=== PATIENT | male | born 1970 | race Caucasian/White ===

== ENCOUNTER 2018-09-27 12:10 | Outpatient (REF) | payer OTHER, SELFPAY ==
[2018-09-27 19:57] LABS: Abs Immature Grans 0.04 k/cumm (0.0-0.09); Absolute Lymphocyte Count 1.67 k/cumm (1.2-3.4); Absolute Monocyte Count 1.56 k/cumm (0.11-0.7); Absolute Neutrophil Count 12.98 k/cumm (1.2-6.7); Basophils % 0.1; HCT 41.8 % (40.0-50.0); Immature Grans % 0.2; Lymphocytes % 10.3; Mean Corp. HGB Concentration 33.5 g/dL (32.0-36.0); Mean Corpuscular Hemoglobin 31.2 pg (27.0-33.0); Mean Corpuscular Volume 93.1 fL (80-95); Mean Platelet Volume 10.6 fL (8.0-11.0); Monocytes % 9.6; Neutrophils % 79.8; Platelet Count 240 x1000/uL (130-400); RBC 4.49 m/cumm (4.50-6.00); RBC Distribution Width 13.9 % (11.8-14.1); White Blood Cell Count 16.26 k/cumm (4.4-10.8)
[2018-09-27 19:59] LABS: Absolute Basophil Count 0.02 k/cumm (0.0-0.2)
[2018-09-27 20:06] LABS: Anion Gap 15.1 mmol/L (3-11); BUN 12 mg/dL (7-18); CO2 26.9 mmol/L (21.0-32.0); CREATININE 0.96 mg/dL (0.70-1.30); Calcium 9.5 mg/dL (8.5-10.1); Chloride 100 mmol/L (98-107); Glucose 85 mg/dL (70-100); Potassium 4.4 mmol/L (3.5-5.1); Sodium 142 mmol/L (136-145)
[2018-09-27 20:26] LABS: Diff Comment Diff Reviewed; RBC Morphology Normal
== END 2018-09-27 12:30 ==
LOC: NCHCN 12:10
PROVIDERS: Visit Provider Physician Assistant Medical
DX: N41.0 Acute prostatitis (principal); R31.9 Hematuria, unspecified; R34 Anuria and oliguria
CPT/HCPCS: 80048; 85025; 87086

== ENCOUNTER 2018-10-21 15:51 | Outpatient (REF) | payer OTHER, SELFPAY ==
[2018-10-21 20:02] LABS: Ferritin 149 ng/mL (8-388); Magnesium 2.1 mg/dL (1.8-2.4)
== END 2018-10-21 16:11 ==
LOC: NCHCN 15:51
PROVIDERS: Visit Provider Physician Assistant Medical
DX: G25.81 Restless legs syndrome (principal)
CPT/HCPCS: 82728; 83735

== ENCOUNTER 2020-03-19 15:24 | Outpatient (REF) | payer OTHER, SELFPAY ==
[2020-03-21 19:20] LABS: COVID-19 RT-PCR UVMMC Result Negative (Negative)
== END 2020-03-19 15:44 ==
LOC: NCHCN 15:24
PROVIDERS: Visit Provider Physician Assistant Medical
DX: Z11.59 Encounter for screening for other viral diseases (principal)
CPT/HCPCS: U0003

== ENCOUNTER 2020-06-14 09:35 | Outpatient (REF) | payer OTHER, SELFPAY ==
[2020-06-14 16:14] LABS: ALT 29 U/L (16-63); AST 20 U/L (15-37); Albumin 4.5 g/dL (3.4-5.0); Alkaline Phosphatase 79 U/L (46-116); Anion Gap 8.9 mmol/L (3-11); BUN 14 mg/dL (7-18); Bilirubin, Total 0.6 mg/dL (0.2-1.0); CO2 30.1 mmol/L (21.0-32.0); CREATININE 0.9 mg/dL (0.70-1.30); Calcium 9.8 mg/dL (8.5-10.1); Calculated LDL 106 mg/dL (<100); Chloride 103 mmol/L (98-107); Cholesterol 174 mg/dL (<200); Glucose 92 mg/dL (74-106); HDL Cholesterol 51 mg/dL (40-60); Potassium 4.8 mmol/L (3.5-5.1); Sodium 142 mmol/L (136-145); TSH (W/Ref FT4) 1.19 uIU/mL (0.36-3.74); Total Protein 7.9 g/dL (6.4-8.2); Triglyceride 89 mg/dL (<150)
[2020-06-19 09:37] LABS: Testosterone, Free 14.2 ng/dL (4.06-15.6); Testosterone, Total 749 ng/dL (240-950)
== END 2020-06-14 09:36 | disposition home or self-care (01) ==
LOC: NCHCN 09:35
PROVIDERS: Visit Provider Physician Assistant Medical
DX: Z00.00 Encounter for general adult medical examination without abnormal findings (principal); Z13.220 Encounter for screening for lipoid disorders; Z13.29 Encounter for screening for other suspected endocrine disorder; Z13.228 Encounter for screening for other metabolic disorders
CPT/HCPCS: 80053; 80061; 84402; 84403; 84443

== ENCOUNTER 2020-08-27 06:49 | Emergency (ER) | payer OTHER, SELFPAY ==
[2020-08-27 06:52] VITALS: BP 112/62; PULSE 73; RESP 18; TEMP 36.3; O2SAT 99
--- NOTE | 2020-08-27 06:57 | W.ED.GENAD ---
Discharge Plan Disposition Patient Disposition: HOME Condition: Stable Discharge Details Clinical Impression: Finger laceration Primary Care Provider: Maeve Delong ED Provider: Jose Rivers Home Meds and New Rx's Prescriptions: Continued aripiprazole [Abilify] 10 mg tablet 10 mg PO DAILY RF: 0 Discharge Instructions Instructions: Skin Adhesive Care (ED) Additional Instructions: If you have spreading redness, yellow/white discharge from the wound, or fevers return to the emergency department Stand Alone Forms: Work Release Medical Decision Making 50 yo male comes in with left index finger laceration. He states he was at work and was using achisel when it slipped and hit the left anterior index finger at the mid point between dip and pip joint. No fall or other injuries. He has a 1cm superficial laceration with full flexion and extension of all finger joints in the finger and intact sensation. No findings on exam to suggest tendon injury. No bony tenderness and wound is very superficial so doubt fracture and no palpable foreign body and denies chance of this with the chisel so do not feel xray indicated. He states he has had tetanus vaccine within 5 years. I applied a finger tourniquet on arrival and cleaned the wound and applied skin adhesive. He tolerated well. Will place in finger splint and return precautions given Differential Diagnosis Differential Diagnosis: abrasion, laceration HPI General Mode of arrival: ambulatory. Date/Time Provider Initiated Documentation: 08/27/20 06:57. Limitations to Documentation: no limitations. Information obtained by: patient. History of Present Illness 50 year old M presents to the emergency department with the chief complaint of left index finger laceration, described as moderate, with intensity rated at 1. and it has been constant. No relieving factors improve symptom(s), No exacerbating factors reported . Patient notes no other symptoms.. Related Data Home Medications Medication Instructions Recorded Confirmed aripiprazole [Abilify] 10 mg PO DAILY 08/27/20 08/27/20 Allergies Allergy/AdvReac Type Severity Reaction Status Date / Time No Known Allergies Allergy Unverified 08/27/20 06:55 General Stated Complaint: Laceration CRYSTAL: 3 Review of Systems All systems reviewed & are unremarkable except as noted in HPI and below Constitutional Constitutional: Denies chills, Denies fever(s) and Denies weakness Cardiovascular Cardiovascular: Denies chest pain and Denies dyspnea Respiratory Respiratory: Denies cough and Denies dyspnea Gastrointestinal Gastrointestinal: Denies abdominal pain, Denies nausea and Denies vomiting Musculoskeletal Musculoskeletal: Denies joint swelling Neurologic Neurologic: Denies weakness Psychiatric Psychiatric: Denies depression [facility] Medical History (Updated 08/27/20 @ 07:10 by Jose Rivers MD) Depression Tobacco abuse Tooth abscess Social History Smoking/Tobacco Use Status: Current every day Smoking risk assessment performed?: Yes Drug use: Never Do you feel safe at home: Yes Do you feel safe in your relationship?: Yes Exam Const General: no acute distress Orientation: alert HENMT Head: normal to inspection Ears: external ears normal General nose exam: external nose normal Mouth: moist mucous membranes Eyes General: appearance normal, both eyes and all related structures Neck Neck: normal visual inspection Resp Effort & Inspection: normal respiratory effort and able to speak in complete sentences Cardio Rate: regular rate Skin General skin exam: no rashes or lesions noted Neuro General: patient alert and patient oriented x3 Extrem General: full ROM and capillary refill normal Psych Mental Status: mental status grossly normal Course Vital Signs Vital signs: Vital Signs Temperature 36.3 C L 08/27/20 06:52 Pulse 73 08/27/20 06:52 Respiratory Rate 18 08/27/20 06:52 Blood Pressure 112/62 08/27/20 06:52 Pulse Oximetry 99 08/27/20 06:52 Temperature 36.3 C L 08/27/20 06:52 Temperature Source Temporal Artery Scan 08/27/20 06:52 Pulse 73 08/27/20 06:52 Respiratory Rate 18 08/27/20 06:52 Respiratory Effort Non-Labored 08/27/20 06:56 Blood Pressure 112/62 08/27/20 06:52 Pulse Oximetry 99 08/27/20 06:52 Oxygen Delivery Method Room Air 08/27/20 06:52 Oxygen Flow Rate 0 08/27/20 06:52 Pain Level 1 08/27/20 06:56 Procedures Laceration Laceration 1: Site: hand Side (If applicable): left Size (cm): 1 Description: linear Depth: simple, single layer Pre-repair: wound explored and irrigated extensively Skin layer closed with: other (skin adhesive)
== END 2020-08-27 07:28 | disposition home or self-care (01) ==
PROVIDERS: Emergency Provider Emergency Medicine
DX: S61.211A Laceration without foreign body of left index finger without damage to nail, initial encounter (principal); W27.0XXA Contact with workbench tool, initial encounter; Y99.0 Civilian activity done for income or pay
CPT/HCPCS: 12001

== ENCOUNTER 2022-01-12 09:39 | Emergency (ER) | payer OTHER, SELFPAY ==
[2022-01-12 09:47] VITALS: BP 111/56; PULSE 77; RESP 18; O2SAT 100
--- NOTE | 2022-01-12 11:45 | DI.RAD_ITS ---
Exam(s) XR FINGER RT MIDDLE EXAM: XR FINGER RT MIDDLE CLINICAL HISTORY: trauma, pain at distal phalanx. TECHNIQUE: 2D digital imaging was performed. Three views. COMPARISON: No exams were available for comparison FINDINGS: BONES: No acute fracture is present. No bony destructive lesion is seen. JOINTS: No dislocation present. SOFT TISSUE: Normal. IMPRESSION: No evidence of acute fracture, dislocation, or subluxation. DATA REPOSITORY: RADIATION DOSE DELIVERED:
--- NOTE | 2022-01-12 11:58 | ED.GENADUL_ITS ---
Discharge Plan Disposition Patient Disposition: HOME Condition: Good Discharge Details Clinical Impression: Finger laceration Primary Care Provider: Maeve Delong ED Provider: Felicia Cali Home Meds and New Rx's Prescriptions: Continued aripiprazole [Abilify] 10 mg tablet 10 mg PO DAILY Label Comments: Take 1 tab by mouth daily lamotrigine 150 mg tablet 150 mg PO DAILY Label Comments: TAKE 1 TABLET BY MOUTH ONCE DAILY gabapentin 300 mg capsule 300 mg PO DAILY amoxicillin-pot clavulanate 500-125 mg tablet 1 tab PO BID Label Comments: TAKE 1 TABLET BY MOUTH TWICE DAILY acetylcysteine 600 mg capsule 2 cap PO DAILY Label Comments: TAKE 2 CAPSULES BY MOUTH TWICE DAILY IN THE MORNING AND IN THE AFTERNOON/EARLY EVENING NEEDED. Discharge Instructions Instructions: Finger Laceration (ED) Additional Instructions: Please return immediately to the emergency department if you develop any new or worsening symptoms, if your condition does not improve as expected, or if you become otherwise concerned. It is extremely important that you call soon as possible to make an appointment to be seen in follow-up for this visit by your primary care doctor. You will need to have your sutures removed in 10 days Referrals: Maeve Delong MD [Primary Care Provider] - Discharge Data Discharge Date/Time-TO BE ENTERED AT DEPARTURE: 01/12/22 14:21 Medical Decision Making Concern for laceration, possible fracture, other. Plan for x-rays, laceration repair. Per PCP last tetanus 12/2011, will update. X-rays negative for for fracture. Digital block performed without complication. Laceration repaired without complication. I had a discussion with Patient regarding return to emergency department precautions, home care, and importance of outpatient follow-up. Pt verbalizes understanding of the plan and is amenable. Patient discharged to home with clear plan for outpatient follow-up. All questions were answered. Disposition decision was made weighing the risks and benefits of hospitalization versus outpatient treatment, the risk for further decompensation, and the patient's wishes. Medical Records Medical records reviewed: Yes I reviewed the patient's medical records. Imaging Data Radiologic Study: Attestation: I personally reviewed and interpreted this imaging study as follows: Radiologist's impression: EXAM:? XR FINGER RT MIDDLE CLINICAL HISTORY: ? trauma, pain at distal phalanx.? TECHNIQUE:? 2D digital imaging was performed.? Three views. COMPARISON:? No exams were available for comparison FINDINGS: BONES: No acute fracture is present. No bony destructive lesion is seen. JOINTS: No dislocation present. SOFT TISSUE: Normal. IMPRESSION: No evidence of acute fracture, dislocation, or subluxation. HPI General Mode of arrival: ambulatory . Date/Time Provider Initiated Documentation: 01/12/22 11:57 . Limitations to Documentation: no limitations . Information obtained by: patient, RN notes reviewed and old records reviewed . HPI Narrative: Joni Foster is a 51-year-old man with history of depression presenting to the emergency department with laceration to right middle finger. Patient reports that just prior to arrival he was working with a piece of wood and a mari when he turned his head for a moment and cut his finger on the piece of wood. He denies any other pain, denies any other injury. Patient reports that he was previously well and in his usual state of health. He denies fever, cough, shortness of breath, vomiting, diarrhea, numbness, weakness, rash. Patient reports that he is unsure when his last tetanus shot was states it may have been greater than 5 years ago. Related Data Home Medications Medication Instructions Recorded Confirmed aripiprazole 10 mg tablet (Abilify) 10 mg PO DAILY 08/27/20 08/27/20 acetylcysteine 600 mg capsule 2 cap PO DAILY 01/12/22 01/12/22 amoxicillin 500 mg-potassium 1 tab PO BID 01/12/22 01/12/22 clavulanate 125 mg tablet gabapentin 300 mg capsule 300 mg PO DAILY 01/12/22 01/12/22 lamotrigine 150 mg tablet 150 mg PO DAILY 01/12/22 01/12/22 Allergies Allergy/AdvReac Type Severity Reaction Status Date / Time No Known Allergies Allergy Unverified 01/12/22 09:49 General Stated Complaint: Laceration CRYSTAL: 4 Review of Systems Narrative: Constitutional: denies fevers Eyes: denies eye pain ENT: denies ear pain, dental pain, sore throat Cardiovascular: denies chest pain Respiratory: denies SOB, cough GI: denies abdominal pain, vomiting, diarrhea : denies flank pain MSK: denies back pain, neck pain, arthralgias Skin: denies rash Neuro: denies headaches, numbness, weakness PFSH All Active Problems Subluxation of ankle joint (Acute) Tibia/fibula fracture, shaft (Acute) Post-op pain (Acute) Finger laceration (Acute) Finger laceration (Acute) Medical History Depression Tobacco abuse Tooth abscess Social History Smoking/Tobacco Use Status: Current every day Smoking risk assessment performed?: Yes Alcohol Intake: former Drug use: Never Substance use type: does not use Do you feel safe at home: Yes Do you feel safe in your relationship?: Yes Exam Narrative Exam Narrative: Constitutional: well and [id number], pleasant, conversing normally HENT: head atraumatic/normocephalic/normal inspection, mucous membranes moist Eyes: conjunctiva normal, sclera normal, pupils 3mm b/l Neck: no stridor, normal ROM, trachea midline Resp: normal work of breathing, speaking in full sentences Cardio: normal rate, normal rhythm Skin: warm, dry, normal color, no rash Neuro: alert, not altered, grossly non-focal, normal tone Ext: Right third digit with triangular flap laceration to the palmar aspect of the distal phalanx, does not cross joint. There is diffuse tenderness palpation of the distal phalanx with mild edema. Brisk cap refill, sensation intact. Radial pulse intact. Full range of motion of all digits, no tenderness of the other digits or of the hand. Psych: normal mood, normal affect, normal behavior Course Vital Signs Vital signs: Vital Signs Pulse 77 01/12/22 09:47 Respiratory Rate 18 01/12/22 09:47 Blood Pressure 111/56 L 01/12/22 09:47 Pulse Oximetry 100 01/12/22 09:47 Temperature Source Temporal Artery Scan 01/12/22 09:47 Pulse 77 01/12/22 09:47 Respiratory Rate 18 01/12/22 09:47 Respiratory Effort Non-Labored 01/12/22 09:53 Blood Pressure 111/56 L 01/12/22 09:47 Blood Pressure Position Sitting 01/12/22 09:47 Pulse Oximetry 100 01/12/22 09:47 Oxygen Delivery Method Room Air 01/12/22 09:47 Oxygen Flow Rate 0 01/12/22 09:47 Procedures Laceration Laceration 1: Site: hand Side (If applicable): right Size (cm): 2 Description: flap Depth: simple, single layer Local Anesthetic: other anesthetic (Digital block) Pre-repair: wound explored and irrigated extensively Skin layer closed with: nylon Size (cm): 5-0 Number of sutures: 2 Technique: simple, interrupted Nerve Block Nerve Block 1: Time out performed: Yes Local Anesthetic: Lidocaine 1% Amount of anesthesia used (mL): 4 Side: right Nerve Blocks: digital Procedure Successful: Yes Patient Tolerated Procedure: well and no complications Complications: none
[2022-01-12] MEDS: Bacitracin 1 PACKET TP (14:09)
== END 2022-01-12 14:21 | disposition home or self-care (01) ==
PROVIDERS: Emergency Provider Student in an Organized Health Care Education/Training Program; PCP Physician Assistant Medical
DX: S61.212A Laceration without foreign body of right middle finger without damage to nail, initial encounter (principal); F17.200 Nicotine dependence, unspecified, uncomplicated; Z23 Encounter for immunization; W26.8XXA Contact with other sharp object(s), not elsewhere classified, initial encounter
CPT/HCPCS: 12001; 90471; 99283; 73140; 99282

== ENCOUNTER 2023-04-19 19:13 | Emergency (ER) | payer OTHER, SELFPAY ==
[2023-04-19 19:42] VITALS: BP 108/56; PULSE 79; RESP 18; TEMP 36.5; O2SAT 98
--- NOTE | 2023-04-19 19:45 | DI.RAD_ITS ---
Exam(s) XR FINGER LT LITTLE EXAM: XR FINGER LT LITTLE CLINICAL HISTORY: L pinky deformity. TECHNIQUE: 2D digital imaging was performed. COMPARISON: CR XR FINGER RT MIDDLE from 01/12/2022 FINDINGS: 3 views There is a transverse fracture in the proximal 3rd of the proximal phalanx of the 5th finger. Mild d isplacement and angulation noted. No osseous lesions evident. No radiopaque foreign body. IMPRESSION: Angulated fracture of the proximal aspect of the proximal phalanx of the 5th finger. Fracture does n ot appear to obviously involve the articular surface of the metacarpophalangeal joint. DATA REPOSITORY: RADIATION DOSE DELIVERED:
--- NOTE | 2023-04-19 20:17 | ED.GENADUL_ITS ---
HPI General Stated Complaint: Orthopedic CRYSTAL: 4 Date/Time Provider Initiated Documentation: 04/19/23 19:46. HPI Narrative: 53 year-old male presents to ED today by POV/ambulating with his spouse with a chief complaint of L pinky injury, R-hand dominant, with onset just prior to arrival while breaking up a dog fight. Quality described as painful and has a crooked L pinky, no radiation to break in the skin or puncture wound. Severity is described as moderate. Palliating factors include nothing specific attempted. Provoking factors include nothing specific. Events leading up to the incident/Associated Symptoms: patients' Tdap is UTD. Patient not anticoagulated. Related Data Home Medications Medication Instructions Recorded Confirmed aripiprazole 10 mg tablet (Abilify) 10 mg PO DAILY 08/27/20 08/27/20 acetylcysteine 600 mg capsule 2 cap PO DAILY 01/12/22 01/12/22 amoxicillin 500 mg-potassium 1 tab PO BID 01/12/22 01/12/22 clavulanate 125 mg tablet gabapentin 300 mg capsule 300 mg PO DAILY 01/12/22 01/12/22 lamotrigine 150 mg tablet 150 mg PO DAILY 01/12/22 01/12/22 Allergies Allergy/AdvReac Type Severity Reaction Status Date / Time No Known Allergies Allergy Unverified 01/12/22 09:49 Review of Systems All systems reviewed & are unremarkable except as noted in HPI and below PFSH All Active Problems (Updated 04/19/23 @ 21:13 by JOSEPH Shepherd) Fracture of phalanx of left little finger (Acute) Finger laceration (Acute) Post-op pain (Acute) Tibia/fibula fracture, shaft (Acute) Subluxation of ankle joint (Acute) Medical History Depression Tobacco abuse Tooth abscess Social History Smoking/Tobacco Use Status: Current every day Smoking risk assessment performed?: Yes Alcohol Intake: former Drug use: Never Substance use type: does not use Do you feel safe at home: Yes Do you feel safe in your relationship?: Yes Exam Narrative Exam Narrative: GENERAL APPEARANCE: Well-nourished, non-toxic, awake and alert, atraumatic, no acute distress. SKIN: Warm, pink, dry, intact, without rashes/lesions/ulcerations. HEAD: Normocephalic, atraumatic, normal hair distribution for gender/age. EYES: Pupils PERRLA, EOMs intact without nystagmus, normal conjunctiva, no exudates on lids/lashes. ENT: Nares patent, no circumoral cyanosis, no facial swelling NECK: Supple, trachea midline, painless cervical ROM. LUNGS/CHEST: Non-labored respirations, normal A/P diameter, symmetrical expansion, no chest wall deformity HEART (CV/PV): Regular rate, L radial pulse 2+, no peripheral edema, no JVD. ABDOMEN: Soft, non-distended, no guarding. MSK: Normal ROM, no swelling/deformity to bilateral UEs or LEs, moving all extremities without weakness, no cyanosis, spine midline without tenderness, normal curvature. L Hand: laterally deviated L pinky finger, no lacerations, brisk capillary refill, sensation intact, +crepitus NEURO: Mental Status AAOx4 - alert to person, place, time, events No facial droop, no forehead involvement. Motor: No focal weakness - strength 5/5 in bilateral UEs and LEs, proximal and distal, symmetric. Sensory: sensation intact to light touch globally. Gait normal: patient ambulated without ataxia into ED room. PSYCH: euthymic, cooperative, pleasant, appropriate speech Course Vital Signs Vital signs: Vital Signs Temperature 36.5 C 04/19/23 19:42 Pulse 79 04/19/23 19:42 Respiratory Rate 18 04/19/23 19:42 Blood Pressure 108/56 L 04/19/23 19:42 Pulse Oximetry 98 04/19/23 19:42 Temperature 36.5 C 04/19/23 19:42 Temperature Source Oral 04/19/23 19:42 Pulse 79 04/19/23 19:42 Respiratory Rate 18 04/19/23 19:42 Respiratory Effort Normal 04/19/23 19:56 Blood Pressure 108/56 L 04/19/23 19:42 Blood Pressure Position Sitting 04/19/23 19:42 Pulse Oximetry 98 04/19/23 19:42 Pain Level 7 04/19/23 19:42 Medical Decision Making This dictation utilizes [id number] dictation software and may contain unedited grammatical errors. 53 y/o M presents to ED today with a chief complaint of L pinky injury while breaking up a dog fight. R-hand dominant, no breaks in skin, laterally deviated pinky. Patients' medical history: nocontributory. Family and social history: noncontributory. Pertinent exam findings / vital signs include L Hand: laterally deviated L pinky finger, no lacerations, brisk capillary refill, sensation intact, +crepitus. Differential / pathologies of concern include Fracture, Dislocation. Diagnostic studies of: -XR Finger - shows proximal phalanx fracture with slight angulation. Interventions of: -Splinted by staff nuclear weapons officer, discussed with Dr. Garg who will see in clinic in the coming days. ED Course/Assessment/Plan: Patient's finger fracture was splinted, I counseled him on RICE therapy as well as therapeutic dosing of Tylenol and ibuprofen and following with orthopedics, if they need to perform a closed reduction at that time Dr. Garg said he could do it in the clinic. Reasonable for discharge home, no breaks in the skin or lacerations or dog bites, patient's tetanus is up-to-date. Findings not consistent with neurovascular compromise. Disposition of Fracture of phalanx of left little finger. Patient verbalized understanding of the plan and return to ED criteria and engaged in shared decision making. Medical Records Medical records reviewed: Yes I reviewed the patient's medical records. Imaging Data Radiologic Study: Imaging: X-Ray Radiologist's impression: Exam: XR Left Finger(s) Exam date and time: 04/19/2023 8:01 PM Age: 53 years old Clinical indication: Pain; Finger(s); Left; Patient HX: L pinky deformity TECHNIQUE: Imaging protocol: Radiologic exam of the left fingers. Views: Minimum 2 views. COMPARISON: No relevant prior studies available. FINDINGS: Bones/joints: Joint space narrowing in the DIP joints and PIP joints consistent with degenerative changes. Displaced fracture in the proximal aspect of the proximal phalanx of the little finger. It is angulated.. Soft tissues: Soft tissue swelling of the little finger IMPRESSION: Displaced fracture in the proximal aspect of the proximal phalanx of the little finger. It is angulated.. Dictated and Authenticated by: Haydee Berry MD. Ordering:MER Ivory MD Quality:SDOH Health Related Social Needs: No Data to Display Discharge Plan Disposition Patient Disposition: Home Condition: Stable Discharge Details Clinical Impression: Fracture of phalanx of left little finger Primary Care Provider: Lloyd Velasco ED Provider: Cachorro Schrader Home Meds and New Rx's Prescriptions: Continued aripiprazole [Abilify] 10 mg tablet 10 mg PO DAILY Patient Comments: Take 1 tab by mouth daily lamotrigine 150 mg tablet 150 mg PO DAILY Patient Comments: TAKE 1 TABLET BY MOUTH ONCE DAILY gabapentin 300 mg capsule 300 mg PO DAILY amoxicillin-pot clavulanate 500-125 mg tablet 1 tab PO BID Patient Comments: TAKE 1 TABLET BY MOUTH TWICE DAILY acetylcysteine 600 mg capsule 2 cap PO DAILY Patient Comments: TAKE 2 CAPSULES BY MOUTH TWICE DAILY IN THE MORNING AND IN THE AFTERNOON/EARLY EVENING NEEDED. Discharge Instructions Instructions: Finger Fracture (ED) Additional Instructions: You were seen in the emergency department for the fracture of your left little finger breaking up a dog fight. It was splinted, you need to remain in the splint 100% of the time, please rest, ice, compress and elevate. Please use therapeutic dosing of Tylenol (acetamenophen) & Advil (ibuprofen) in an alternating fashion as follows: Take 1000mg of Tylenol every 6 hours without missing doses- that is 4 times per day. [place] in between the Tylenol dosings, take 400-600mg of Advil also on a 6 hour schedule, that is also 4 times per day. The daily maximum dosing of Tylenol is 4000mg, and the daily maximum dosing of Advil is 2400mg. This is safe to do for weeks. Please note that some common cold medications & prescription pain medications may contain acetamenophen and you need to read OTC drug labels and factor that in to maximum daily dosings. I spoke to Dr. Garg our orthopedic surgeon about the fracture, he will see you in clinic this week. If you have not heard from his office please call them within 48 hours Referrals: [facility] [Provider Group] Lloyd Velasco PA [Primary Care Provider] -
--- NOTE | 2023-04-19 20:33 | DI.VRAD_ITS ---
PROCEDURE INFORMATION: Exam: XR Left Finger(s) Exam date and time: 04/19/2023 8:01 PM Age: 53 years old Clinical indication: Pain; Finger(s); Left; Patient HX: L pinky deformity TECHNIQUE: Imaging protocol: Radiologic exam of the left fingers. Views: Minimum 2 views. COMPARISON: No relevant prior studies available. FINDINGS: Bones/joints: Joint space narrowing in the DIP joints and PIP joints consistent with degenerative changes. Displaced fracture in the proximal aspect of the proximal phalanx of the little finger. It is angulated.. Soft tissues: Soft tissue swelling of the little finger IMPRESSION: Displaced fracture in the proximal aspect of the proximal phalanx of the little finger. It is angulated.. Dictated and Authenticated by: Haydee Berry MD. Ordering:MER Ivory MD
== END 2023-04-19 21:18 | disposition home or self-care (01) ==
PROVIDERS: Emergency Provider Physician Assistant; PCP Physician Assistant Medical
DX: S62.607A Fracture of unspecified phalanx of left little finger, initial encounter for closed fracture (principal); W54.8XXA Other contact with dog, initial encounter
CPT/HCPCS: 26720; 29130; 99283; 73140

== ENCOUNTER 2023-04-22 15:16 | Outpatient (CLI) | payer OTHER, SELFPAY ==
--- NOTE | 2023-04-22 14:10 | DI.RAD_ITS ---
Exam(s) XR FINGER LT LITTLE EXAM: XR FINGER LT LITTLE CLINICAL HISTORY: fracture follow up. TECHNIQUE: 2D digital imaging was performed. COMPARISON: CR,XR XR FINGER LT LITTLE from 04/19/2023 FINDINGS: 3 views Previously described angulated fracture in the proximal aspect of the proximal phalanx appears un unc hanged. No further displacement. Fracture line does not appear to violate the metacarpophalangeal j oint space. IMPRESSION: Stable appearance DATA REPOSITORY: RADIATION DOSE DELIVERED:
== END 2023-04-22 15:17 | disposition home or self-care (01) ==
LOC: DIORS 15:17
PROVIDERS: PCP Physician Assistant Medical; Visit Provider Physician Assistant
DX: S62.617D Displaced fracture of proximal phalanx of left little finger, subsequent encounter for fracture with routine healing (principal); X58.XXXD Exposure to other specified factors, subsequent encounter
CPT/HCPCS: 73140

== ENCOUNTER 2023-04-29 19:40 | Outpatient (CLI) | payer OTHER, SELFPAY ==
--- NOTE | 2023-04-29 13:45 | DI.RAD_ITS ---
Exam(s) XR FINGER LT LITTLE EXAM: XR FINGER LT LITTLE CLINICAL HISTORY: F/U FRACTURE. TECHNIQUE: 2D digital imaging was performed. Three views. COMPARISON: 19 April and 22 April 2023 FINDINGS: There has been no change in the alignment of the fracture at the base of the proximal phalanx. DATA REPOSITORY: RADIATION DOSE DELIVERED:
== END 2023-04-29 19:41 | disposition home or self-care (01) ==
LOC: DIORS 19:44
PROVIDERS: PCP Physician Assistant Medical; Visit Provider Physician Assistant
DX: S62.64 Nondisplaced fracture of proximal phalanx of finger (principal); X58.XXXD Exposure to other specified factors, subsequent encounter
CPT/HCPCS: 73140

== ENCOUNTER 2024-04-19 18:19 | Outpatient (REF) | payer OTHER, SELFPAY ==
[2024-04-19 19:55] LABS: Abs Immature Grans 0.01 10^3/uL (0.0-0.06); Absolute Basophil Count 0.04 10^3/uL (0.0-0.2); Absolute Lymphocyte Count 2.49 10^3/uL (1.2-3.4); Absolute Monocyte Count 0.52 10^3/uL (0.1-0.8); Absolute Neutrophil Count 3.67 10^3/uL (1.2-6.7); Basophils % 0.6 %; Eosinophils % 1.5 %; HCT 39.2 % (40.0-50.0); HGB 13.5 g/dL (13.5-17.5); Immature Grans % 0.1 %; Lymphocytes % 36.5 %; MCH 30.6 pg (27.0-33.0); MCHC 34.4 % (32.0-36.0); MCV 89 fL (80-95); MPV 9.7 fL (8.0-11.0); Monocytes % 7.6 %; Neutrophils % 53.7 %; Platelet Count 289 10^3/uL (130-400); RBC 4.41 10^6/uL (4.36-5.78); RDW 13.1 % (11.8-14.1); RDW-SD 42.7 fL; WBC 6.83 10^3/uL (4.4-10.8)
[2024-04-19 20:24] LABS: ALT 18 U/L (16-63); AST 18 U/L (15-37); Albumin 4.5 g/dL (3.4-5.0); Alkaline Phosphatase 77 U/L (46-116); Anion Gap 5.6 mmol/L (3-11); BUN 16 mg/dL (7-18); Bilirubin, Total 0.39 mg/dL (0.2-1.0); CO2 31.4 mmol/L (21.0-32.0); CREATININE 1.1 mg/dL (0.70-1.30); Calcium 9.8 mg/dL (8.5-10.1); Chloride 104 mmol/L (98-107); Estimated GFR 79.77 (mL/min/1.73m2); Ferritin 156 ng/mL (26-388); Glucose 93 mg/dL (74-106); Magnesium 2.3 mg/dL (1.8-2.4); Sodium 141 mmol/L (136-145); Total Protein 7.5 g/dL (6.4-8.2)
== END 2024-04-19 18:20 | disposition home or self-care (01) ==
LOC: NCHCN 18:19
PROVIDERS: PCP Physician Assistant Medical; Visit Provider Physician Assistant Medical
DX: G25.81 Restless legs syndrome (principal)
CPT/HCPCS: 80053; 82728; 83735; 85025